=== PATIENT | male | born 1975 ===

== ENCOUNTER 2016-12-30 05:20 | Emergency (ER) | payer OTHER ==
[2016-12-30 05:36] VITALS: BP 120/72; PULSE 87; RESP 16; TEMP 98.3; O2SAT 96
[2016-12-30] MEDS ORDERED: Oxycodone/Acetaminophen 5/325 mg Tab PO STA (05:36)
[2016-12-30] MEDS ORDERED: TDAP Vaccine 0.5 mL Syr IM ONE (05:36)
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
== END 2016-12-30 06:00 | disposition home or self-care (01) ==
LOC: H.ER 05:20
DX: T14.8 Other injury of unspecified body region (principal); Y04.1XXA Assault by human bite, initial encounter; Y92.89 Other specified places as the place of occurrence of the external cause